=== PATIENT | male | born 1965 | race Caucasian/White ===

== ENCOUNTER 2017-07-14 15:46 | Emergency (ER) | payer BC ==
[~2017-07-14] VITALS: Ht 177.8 cm; Wt 104.3 kg
[2017-07-14 15:50] VITALS: BP_SYST 152
[2017-07-14] MEDS ORDERED: PROCHLORPERAZINE EDISYLATE 10 MG/2 ML VIAL IM ONE (16:15)
[2017-07-14 17:20] VITALS: BP_SYST 143
== END 2017-07-14 17:20 | disposition home or self-care (01) ==
LOC: SED 15:46
DX: G43.909 Migraine, unspecified, not intractable, without status migrainosus (principal); I10 Essential (primary) hypertension
CPT/HCPCS: 70450; 96372; 99284; J0780

== ENCOUNTER 2020-10-18 09:23 | Emergency (ER) | payer BC, OTHER ==
[~2020-10-18] VITALS: Ht 177.8 cm; Wt 95.3 kg
[2020-10-18 09:25] VITALS: BP_SYST 161
--- NOTE | 2020-10-18 09:45 | NUR ---
ER at bedside examining patient.
--- NOTE | 2020-10-18 09:47 | NUR ---
Pt. bib with c/o left flank pain 09/29 stated started at 1 am and has worsened, also has N/V x1, pt. ambulated to bathroom so we can obtain urine.
[2020-10-18] MEDS ORDERED: KETOROLAC TROMETHAMINE 60 MG/2 ML VIAL IM ONE (10:00)
--- NOTE | 2020-10-18 10:09 | NUR ---
Patient transported to radiology via wheelchair, accompanied by staff.
[2020-10-18 10:38] LABS: BASOPHILS % (AUTO) 0.3 % (0.0-2.0); HEMATOCRIT 46.1 % (36-54); LYMPHOCYTES # (AUTO) 0.8 K/uL (1.0-5.5); LYMPHOCYTES % (AUTO) 5.6 % (20.5-51.5); MEAN CORPUSCULAR HEMOGLOBIN 30 pg (27-31); MEAN CORPUSCULAR HGB CONC 35 % (32-36); MEAN CORPUSCULAR VOLUME 87 fL (79.0-98.0); MONOCYTES # (AUTO) 0.3 K/uL (0.0-1.0); MONOCYTES % (AUTO) 1.7 % (1.7-9.3); NEUTROPHILS # (AUTO) 13.7 K/uL (1.8-7.7); NEUTROPHILS % (AUTO) 92.4 % (40.0-70.0); PLATELET COUNT (AUTO) 251 K/uL (130-430); RED BLOOD CELL COUNT(AUTO) 5.31 MIL/uL (4.2-6.2); RED CELL DISTRIBUTION WIDTH 14.4 % (9.0-15.0); WHITE BLOOD COUNT (AUTO) 14.8 K/uL (4.8-10.8)
[2020-10-18 10:40] LABS: ANION GAP 11 (5-15); CALCIUM 8.9 mg/dL (8.4-11.0); CHLORIDE 102 mmol/L (98-107); CREATININE 1.39 mg/dL (0.55-1.30); GLUCOSE 146 mg/dL (70-99); POTASSIUM 3.8 mmol/L (3.5-5.1); SODIUM SERUM 138 mmol/L (136-145); UREA NITROGEN, BLOOD 23 mg/dL (8-21)
[2020-10-18 10:44] LABS: ALANINE AMINOTRANSFERASE 53 U/L (12-78); ALBUMIN 3.6 g/dL (3.4-4.8); AMYLASE 43 U/L (0-100); ASPARTATE AMINOTRANSFERASE 31 U/L (10-37); LIPASE 147 U/L (73-393); TOTAL BILIRUBIN 0.6 mg/dL (0.0-1.0)
[2020-10-18 10:51] LABS: C-REACTIVE PROTEIN QUANT < 0.2 mg/dL (0-0.5); GFR AFRICAN AMERICAN 68 mL/min (>90)
[2020-10-18 10:52] LABS: BILIRUBIN,URINE NEGATIVE (NEGATIVE); BLOOD, URINE 3+ (NEGATIVE); CLARITY/URINE CLEAR (CLEAR); COLOR,URINE YELLOW (YELLOW); GLUCOSE,URINE NEGATIVE (NEGATIVE); KETONES,URINE TRACE (NEGATIVE); LEUKOCYTE ESTERASE ,URINE NEGATIVE (NEGATIVE); NITRITE, URINE NEGATIVE (NEGATIVE); PROTEIN URINE 1+ (NEGATIVE); UROBILINOGEN,URINE 0.2 (0.2-1.0)
[2020-10-18] MEDS ORDERED: HYDR-3917 PO ×2 (11:03)
[2020-10-18] MEDS ORDERED: IBUP-1971 PO (11:03)
[2020-10-18] MEDS ORDERED: ALPR0.5T PO (11:05)
[2020-10-18 11:08] LABS: PROTHROMBIN TIME 10.4 SECS (9.5-12.5)
--- NOTE | 2020-10-18 11:15 | NUR ---
Patient given written and verbal discharge instructions and verbalizes understanding. ER Dr. Vasques discussed with patient the results and treatment provided. Patient in stable condition. ID arm band removed. Rx of Xanax,Fost[place], and Motrin given. Patient educated on pain management and to follow up with PMD. Pain Scale 0. Opportunity for questions provided and answered. Medication side effect fact sheet provided.
[2020-10-18 11:17] VITALS: BP_SYST 165
[2020-10-18 11:35] LABS: BACTERIA,URINE RARE /HPF (None Seen); CALCIUM OXALATE CRYSTALS,UR 0-10 /HPF (None Seen); RBC,URINE 20-50 /HPF (0-3); WBC,URINE 0-3 /HPF (0-3)
[2020-10-18 11:37] LABS: MUCUS,URINE 1+ /LPF (None Seen)
== END 2020-10-18 11:17 | disposition home or self-care (01) ==
LOC: SED 09:23
DX: N23 Unspecified renal colic (principal); I10 Essential (primary) hypertension
CPT/HCPCS: 36415; 74176; 76376; 80053; 81000; 82150; 83690; 85025; 85610; 85730; 86140; 96372; 99284; J1885; 83605